=== PATIENT | male | born 1980 | race Caucasian/White ===

== ENCOUNTER 2021-05-23 12:46 | Emergency (ER) | payer BC, SELFPAY ==
[2021-05-23 13:01] VITALS: BP 117/98; PULSE 96; RESP 20; TEMP 36.6; O2SAT 98
--- NOTE | 2021-05-23 13:04 | ED.BACK ---
HPI - Back Pain/Injury General Chief Complaint: Back Pain/Injury Stated Complaint: Back and Chest Pain,Dizzy Time Seen by Provider: 05/23/21 13:04 Source: patient and RN notes reviewed Mode of arrival: ambulatory Limitations: no limitations History of Present Illness HPI Narrative: 41-year-old male presents to the [facility] with complaints of chest pain and back pain after falling off a ladder 9 feet up. States he did fall into a grassy area. No neuro deficits. Patient states that he does feel dizzy. Denies hitting his head. Denies loss of consciousness. Drove himself. MD elicited complaint: back pain Related Data Allergies Allergy/AdvReac Type Severity Reaction Status Date / Time Penicillins Allergy Severe RASH Verified 05/23/21 18:46 morphine AdvReac Severe CONSTIPATION, Verified 05/23/21 18:46 ANGER codeine AdvReac Mild CONSTIPATION, Verified 05/23/21 18:46 ANGER Review of Systems Review of Systems: All systems reviewed & are unremarkable except as noted in HPI and below Constitutional: Constitutional: Reports no additional constitutional complaints, Denies chills and Denies fever(s) Eyes: Eyes: Reports no additional eye complaints, Denies change in vision and Denies photophobia ENT: Reports system reviewed and no additional complaints, except as documented and Denies sore throat Cardiovascular: Cardiovascular: Reports as per HPI, Reports chest pain (Sternal), Denies rapid heart rate, Denies radiating jaw, neck or arm pain and Denies slow heart rate Respiratory: Respiratory: Reports no additional respiratory complaints, Denies chest congestion, Denies cough, Denies dyspnea and Denies wheezing Gastrointestinal: Gastrointestinal: Reports no additional gastrointestinal complaints Genitourinary: Genitourinary: Reports no additional male genitourinary complaints, Denies urinary frequency and Denies urinary incontinence Musculoskeletal: Musculoskeletal: Reports as per HPI and Reports back pain Integumentary/Breasts: Skin/Breast: Reports system reviewed and no additional complaints, except as docu, Denies erythema and Denies rash Neurologic: Reports as per HPI, Denies confusion, Denies vertigo, Reports dizziness (Intermittent), Denies syncope, Reports headache(s), Denies focal weakness, Denies numbness and Denies weakness Psychiatric: Psychiatric: Reports no additional psychiatric complaints Allergic/Immunologic: Allergic/Immunologic: Reports no additional allergic/immunologic complaints PMFSH Past Medical History Medical History (Updated 05/24/21 @ 00:00 by Frank Colmenares) Seizure Family History Family History Mother Patient's mother is in good health Father Patient's father is in good health Social History Social History Smoking status: Former smoker Smoking end date: 10/29/17 Alcohol intake: current Comments At the time of my signature, I reviewed and agree with the nursing past medical, surgical, social, and family history. There is no relevant family history pertinent to the patient complaint. Exam Const: General: healthy appearing, no acute distress and alert Nutritional Appearance: well nourished Orientation/consciousness: patient oriented x3 Limitations: no limitations HENMT: Head: normal to inspection Ears: external ears normal, TM's normal bilaterally and EAC's normal Eyes: Conjunctivae: conjunctivae normal Pupils: Equal, round and reactive pupils present EOM: EOMs intact bilaterally Direct Ophthalmoscopy: no photophobia Neck: Neck: normal visual inspection, no lymphadenopathy and no meningeal signs Chest: Chest palpation & inspection: no crepitus, tenderness sternum and No rash Resp: Effort & Inspection: normal respiratory effort and no use of accessory muscles Auscultation: clear to auscultation bilaterally, no rales, no rhonchi and no wheezes Cardio: Rate:
--- NOTE | 2021-05-23 13:36 | PC.NURSE ---
1309-Pt refused EMS transfer. Provider instructed pt on risks and benefits but pt continue to decline transfer via EMS. Pt to drive self to [facility] for further evaluation and treatment. No c collar placed on pt due to him driving self per provider.
== END 2021-05-23 13:18 | disposition short-term general hospital (02) ==
LOC: EXPCOLL 12:53
PROVIDERS: Emergency Provider Nurse Practitioner
DX: M54.6 Pain in thoracic spine (principal); R51.9 Headache, unspecified; R42 Dizziness and giddiness; W11.XXXA Fall on and from ladder, initial encounter; Z87.891 Personal history of nicotine dependence
CPT/HCPCS: 99213; G0463

== ENCOUNTER 2021-05-23 17:52 | Emergency (ER) | payer BC, SELFPAY ==
--- NOTE | ~2021-05-23 | XR_ITS ---
EXAMINATION: XR shoulder LT min 2V INDICATION: Left shoulder pain TECHNIQUE: Four views of the left shoulder are submitted. COMPARISON: None FINDINGS: Normal alignment. No fracture. Glenohumeral and acromioclavicular joint spaces are normal. Soft tissues are unremarkable. IMPRESSION: 1. No acute osseous abnormality. Reviewed, dictated and finalized at location A.
--- NOTE | ~2021-05-23 | XR_ITS ---
EXAMINATION: XR chest 2V DATE: 05/23/2021 19:12 INDICATION: Tobacco use, fall TECHNIQUE: PA and lateral views of the chest are obtained. COMPARISON: 02/06/2019 FINDINGS: The lungs are free of acute opacities. There is no pleural effusion or pneumothorax. The ca rdiomediastinal silhouette is normal. The visualized bones and soft tissues are unremarkable. IMPRESSION: 1. No acute cardiopulmonary abnormality. Reviewed, dictated and finalized at location A.
--- NOTE | ~2021-05-23 | CT_ITS ---
EXAMINATION: CT cervical spine wo con DATE: 05/23/2021 19:10 INDICATION: Head injury, neck pain TECHNIQUE: Computed tomography (CT) of the cervical spine was performed without intravenous contrast. The dose-length product (DLP) was 374.04 mGy-cm. Automated exposure control and iterative reconstruc tion technique were employed. COMPARISON: 01/22/2019 FINDINGS: There is depression of the superior endplate of the C7 vertebral body which is new since th e comparison examination. Bone alignment is normal. The intervertebral disc spaces are maintained. Th e odontoid is intact. IMPRESSION: 1. Age-indeterminate superior endplate fracture of C7, possibly acute. Reviewed, dictated and finalized at location A.
--- NOTE | ~2021-05-23 | CT_ITS ---
EXAMINATION: CT brain wo con INDICATION: Head injury COMPARISON: None TECHNIQUE: Standard unenhanced head CT. The dose-length product (DLP) was 374.04 mGy-cm. The mA was a djusted according to patient size. Iterative reconstruction technique was employed. FINDINGS: There is no intracranial hemorrhage, acute infarction, or abnormal mass lesion. The ventric les are normal. There is no abnormal mass effect or midline shift. The ortiz-white matter differentiat ion is normal. The basal cisterns are patent. The orbits are normal. There is mild mucosal thickening of the paranasal sinuses. IMPRESSION: 1. No acute intracranial abnormality. Reviewed, dictated and finalized at location A.
[2021-05-23 18:43] VITALS: BP 140/90; PULSE 93; RESP 18; TEMP 36.6; O2SAT 99
--- NOTE | 2021-05-23 20:03 | ED.FALL ---
HPI - Fall General Chief Complaint: Fall Stated Complaint: fell off 10 ft ladder Time Seen by Provider: 05/23/21 20:03 Source: patient Mode of arrival: ambulatory Limitations: no limitations History of Present Illness HPI Narrative: Patient is a 41-year-old male who presents for evaluation of a fall from a ladder. Patient reportedly was sent from an urgent care where he had a fall approximately 10 feet with head trauma, denies loss of consciousness. Patient has been ambulatory. He reports mild neck pain. He denies headache pain, vision changes, nausea or vomiting. No chest pain or shortness of breath. No pelvic pain or extremity pain. Patient denies any numbness or weakness. Patient denies any prodromal symptoms prior to the fall. States that he tripped off the ladder. Related Data Allergies Allergy/AdvReac Type Severity Reaction Status Date / Time Penicillins Allergy Severe RASH Verified 05/23/21 18:46 morphine AdvReac Severe CONSTIPATION, Verified 05/23/21 18:46 ANGER codeine AdvReac Mild CONSTIPATION, Verified 05/23/21 18:46 ANGER Review of Systems Review of Systems: Narrative: CONSTITUTIONAL: Denies fever, chills. EYES: Denies visual changes, redness, or discharge. CARDIOVASCULAR: Denies chest pain, palpitations, or edema. RESPIRATORY: Denies cough or dyspnea. GASTROINTESTINAL: Denies abdominal pain, nausea, vomiting, or diarrhea. GENITOURINARY: Denies dysuria or hematuria. SKIN: Denies rash or itching. MUSCULOSKELETAL: Denies back pain, joint pain, or myalgia. Reports neck pain. NEUROLOGIC: Denies headache, numbness, or weakness. [facility] Past Medical History Medical History (Updated 05/24/21 @ 00:00 by [facility]) Seizure Family History Family History Mother Patient's mother is in good health Father Patient's father is in good health Social History Social History Smoking status: Former smoker Smoking end date: 10/29/17 Alcohol intake: current Exam Narrative: Exam Narrative: Nursing note and vitals reviewed. CONSTITUTIONAL: The patient appears well-developed and well-nourished. No distress. HEAD: Normocephalic and atraumatic. EYES: PERRL, EOMI, normal conjunctiva, anicteric EARS: External ears clear bilaterally, no hemotympanum MOUTH: OP clear, no erythema, exudates NECK: midline trachea, supple, FROM. Cervical collar in place. Positive midline cervical spinal tenderness, no step-offs or deformities. CARDIOVASCULAR: Normal rate, regular rhythm, normal heart sounds and intact distal pulses. No murmurs, rubs, gallops. PULMONARY: Effort normal and breath sounds normal. No respiratory distress. The patient has no wheezes, rales, ronchi. No chest wall tenderness, crepitus or ecchymoses. ABDOMINAL: Soft. Nontender, nondistended. No palpable masses EXTREMITIES:: moving all extremities symmetrically. -RUE: No deformity. Normal ROM at shoulder, elbow, wrist, and hand. Sensation intact M/U/R. Pulse 2+. -LUE: No deformity. Normal ROM at shoulder, elbow, wrist, and hand., Sensation intact M/U/R. Pulse 2+ -RLE: No deformity. Normal ROM at hip, knee, ankle. Sensation intact distally. -LLE: No deformity. Normal ROM at hip, knee, ankle. Sensation intact distally. NEUROLOGY: The patient is alert and oriented to person, place, and time. CN II-XII Course Vital Signs Vital signs: Vital Signs Temperature 36.6 C 05/23/21 18:43 Pulse Rate 93 05/23/21 18:43 Respiratory Rate 18 05/23/21 18:43 Blood Pressure 140/90 05/23/21 18:43 Pulse Oximetry 99 05/23/21 18:43 Temperature 36.6 C 05/23/21 18:43 Pulse Rate 82 05/23/21 21:23 Respiratory Rate 14 05/23/21 21:23 Blood Pressure 135/89 05/23/21 21:23 Pulse Oximetry 98 05/23/21 21:23 MDM - Fall MDM Narrative Medical decision making narrative: Patient presenting to the emergency department after initially
[2021-05-23] MEDS: ACETAMINOPHEN 500 MG TABLET 1000 MG PO (20:24)
[2021-05-23 21:23] VITALS: BP 135/89; PULSE 82; RESP 14; O2SAT 98
== END 2021-05-23 21:22 | disposition home or self-care (01) ==
PROVIDERS: Emergency Provider Emergency Medicine
DX: S12.690A Other displaced fracture of seventh cervical vertebra, initial encounter for closed fracture (principal); Z87.891 Personal history of nicotine dependence; W11.XXXA Fall on and from ladder, initial encounter
CPT/HCPCS: 70450; 71046; 72125; 73030; 99284; A9270; L0140

== ENCOUNTER 2022-01-26 16:11 | Emergency (ER) | payer BC, SELFPAY ==
[2022-01-26 16:22] VITALS: BP 145/105; PULSE 81; RESP 16; TEMP 36.7; O2SAT 99
--- NOTE | 2022-01-26 16:30 | ED.WOUNDLAC ---
HPI - Wound/Laceration General Chief Complaint: Wound/Laceration Stated Complaint: CUT RIGHT 2ND FINGER Time Seen by Provider: 01/26/22 16:30 Source: patient Mode of arrival: ambulatory Limitations: no limitations History of Present Illness HPI narrative: 41-year-old male presents with laceration to right second digit. 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 Bleeding controlled, range of motion and distal neurovascularly intact. Tetanus was within the last 5 years. All systems reviewed and negative except as noted above. Related Data Home Medications Medication Instructions Recorded Confirmed famotidine 40 mg PO DAILY 01/26/22 01/26/22 lisinopril 5 mg PO DAILY 01/26/22 01/26/22 loratadine [Claritin] 10 mg PO DAILY 01/26/22 01/26/22 Allergies Allergy/AdvReac Type Severity Reaction Status Date / Time morphine AdvReac Severe CONSTIPATION, Verified 01/26/22 16:36 ANGER codeine AdvReac Mild CONSTIPATION, Verified 01/26/22 16:36 ANGER Review of Systems Review of Systems: CONSTITUTIONAL: Denies fever, chills, or sweats. EYES: Denies visual changes, redness, or discharge. ENT: Denies rhinorrhea, congestion, sore throat, or otalgia. CARDIOVASCULAR: Denies chest pain, palpitations, or edema. RESPIRATORY: Denies cough or dyspnea. GASTROINTESTINAL: Denies abdominal pain, nausea, vomiting, or diarrhea. GENITOURINARY: Denies dysuria or hematuria. SKIN: Denies rash or itching. Laceration to right second digit. MUSCULOSKELETAL: Denies back pain, joint pain, or myalgia. NEUROLOGIC: Denies headache, numbness, or weakness. PSYCHIATRIC: Denies anxiety or depression. All other systems reviewed are negative, except as documented in HPI. [facility] Past Medical History Medical History (Updated 01/26/22 @ 17:06 by Daria Werner NP) Seizure Family History Family History Mother Patient's mother is in good health Father Patient's father is in good health Social History Social History Smoking status: Former smoker Smoking end date: 10/29/17 Alcohol intake: current Comments At time of signature, agree with nursing past medical, surgical, social and family history. There is no relevant family history pertinent to the presenting complaint. Exam Narrative: GENERAL: This is a well-nourished, well-developed patient, in no apparent distress. HEAD: normocephalic, atraumatic. EYES: PERRL. Sclera clear/white. Vision is grossly intact. EARS: External ears normal NOSE: External nose normal NECK: Neck supple CARDIOVASCULAR: Regular rate and rhythm without murmurs, gallops, or rubs. RESPIRATORY: Clear to auscultation. Breath sounds equal bilaterally. No wheezes, rales, or rhonchi. SKIN: warm, Dry, intact with no suspicious lesions or rash, good texture and turgor. 2 cm laceration to right index finger at the PIP. NEURO: awake, alert, and oriented to person, place and time. There were no obvious focal neurologic abnormalities. EXTREMITIES: Normal range of motion to all extremities Extrem: Hand/finger images: 1. approx. 2 cm laceration Course Course Level of Care: Express Care Visit Vital Signs Vital signs: Vital Signs Temperature 36.7 C 01/26/22 16:22 Pulse Rate 81 01/26/22 16:22 Respiratory Rate 16 01/26/22 16:22 Blood Pressure 145/105 H 01/26/22 16:22 Pulse Oximetry 99 01/26/22 16:22 Temperature 36.7 C 01/26/22 16:22 Pulse Rate 81 01/26/22 16:22 Respiratory Rate 16 01/26/22 16:22 Blood Pressure 145/105 H 01/26/22 16:22 Pulse Oximetry 99 01/26/22 16:22 Reviewed Procedures Laceration Laceration 1: Date: 01/26/22 Time: 17:12 Site: hand Side (If applicable): right (Index finger) Size (cm): 2 Description: linear Depth: simple, single layer Local
== END 2022-01-26 17:20 | disposition home or self-care (01) ==
PROVIDERS: Emergency Provider Nurse Practitioner Family
DX: S61.211A Laceration without foreign body of left index finger without damage to nail, initial encounter (principal); W26.8XXA Contact with other sharp object(s), not elsewhere classified, initial encounter; Y99.0 Civilian activity done for income or pay; Z87.891 Personal history of nicotine dependence
CPT/HCPCS: 12001; 99213; G0463

== ENCOUNTER 2023-04-06 14:15 | Emergency (ER) | payer BC, SELFPAY ==
--- NOTE | ~2023-04-06 | XR_ITS ---
EXAMINATION: XR wrist RT min 3V INDICATION: Right wrist pain, initial encounter TECHNIQUE: Three views of the right wrist are obtained. COMPARISON: None available FINDINGS: There is a nondisplaced linear fracture in the distal aspect of the radius which appears to extend to the distal articular surface. There is mild cortical irregularity in the dorsal aspect of the distal radius on the lateral view. Soft tissue swelling is seen surrounding the fractures. No add itional fracture is identified. IMPRESSION: 1. Nondisplaced linear fracture of the distal radius which appears to extend to the distal articular surface and dorsal cortex of the distal radius. Reviewed, dictated and finalized at location F.
[2023-04-06 14:29] VITALS: BP 133/85; PULSE 85; RESP 18; TEMP 36.3; O2SAT 98
--- NOTE | 2023-04-06 14:54 | ED.UPPEXIN ---
HPI - Extremity Injury (Upper) General Chief Complaint: Extremity Injury, Upper Stated Complaint: rt wrist injury Time Seen by Provider: 04/06/23 14:54 Source: patient Mode of arrival: ambulatory Limitations: no limitations History of Present Illness HPI narrative: 43-year-old male presented for complaint of right wrist pain after falling off a ladder today. He states he fell approximately 8 ft onto the ground, and then fell forward, attempting to catch himself with the right hand. Endorses mild swelling to the wrist with decreased range of motion due to pain. Has not taken anything for pain. Denies deformity, numbness, tingling, or weakness of the extremity. Denies any other injuries, did not hit his head or lose consciousness. Patient is right-hand dominant. Related Data Home Medications Medication Instructions Recorded Confirmed lisinopril 5 mg tablet 5 mg PO DAILY 01/26/22 04/06/23 Allergies Allergy/AdvReac Type Severity Reaction Status Date / Time morphine AdvReac Severe CONSTIPATION, Verified 01/26/22 16:36 ANGER codeine AdvReac Mild CONSTIPATION, Verified 01/26/22 16:36 ANGER Review of Systems Review of Systems: CONSTITUTIONAL: Denies body aches, fever, chills EYES: Denies visual changes ENT: Denies rhinorrhea, congestion CARDIOVASCULAR: Denies chest pain, palpitations, or edema. RESPIRATORY: Denies cough or dyspnea. GASTROINTESTINAL: Denies abdominal pain, nausea, vomiting, or diarrhea. SKIN: Denies rash, itching, or wounds. MUSCULOSKELETAL: Per HPI NEUROLOGIC: Denies headache, numbness, tingling, or weakness. PSYCH: Denies depression or anxiety. All systems reviewed & are unremarkable except as noted in HPI and below PMFSH Past Medical History Medical History Seizure Family History Family History Mother Patient's mother is in good health Father Patient's father is in good health Social History Social History Smoking status: Former smoker Smoking end date: 10/29/17 Alcohol intake: current Comments At time of signature, I have reviewed and agree with nursing past medical, surgical, social and family history unless otherwise noted. Please see nursing chart for further information. There is no relevant family history pertinent to the presenting complaint Exam Narrative: GENERAL: Well-appearing CHEST: Speaks in full sentences. No respiratory distress. HEART: Regular rate and rhythm. Normal and equal peripheral pulses. EXTREMITIES: Right hand has normal strength and sensation. Limited range of motion with flexion/extension/rotation of wrist, endorses pain with movement. Mild swelling and tenderness over the distal radius into the scaphoid area. Pain with movement of 1st digit. No open wounds, bruising, or obvious deformity; pulse palpable and equal bilaterally, skin warm, dry, pink. Capillary refill less than 3 seconds. SKIN: Warm, dry, no rash. NEURO: Alert and oriented x3. PSYCH: Normal mood and affect Course Course Emergency Course: Patient is aware of diagnosis, understands and agrees to treatment plan. Anticipatory guidance given. Patient agrees to follow-up as directed and is aware of reasons to seek care at the emergency department. Portions of this record may have been created with voice recognition software Level of Care: Express Care Visit Vital Signs Vital signs: Vital Signs Temperature 97.4 F L 04/06/23 14:29 Pulse Rate 85 04/06/23 14:29 Respiratory Rate 18 04/06/23 14:29 Blood Pressure 133/85 04/06/23 14:29 Pulse Oximetry 98 04/06/23 14:29 Oxygen Delivery Room Air 04/06/23 14:29 Temperature 97.4 F L 04/06/23 14:29 Pulse Rate 85 04/06/23 14:29 Respiratory Rate 18 04/06/23 14:29 Blood Pressure 133/85 04/06/23 14:29 Pulse Oximetry 9
== END 2023-04-06 15:21 | disposition home or self-care (01) ==
PROVIDERS: Emergency Provider Nurse Practitioner Family; PCP Family Medicine
DX: S52.501A Unspecified fracture of the lower end of right radius, initial encounter for closed fracture (principal); W11.XXXA Fall on and from ladder, initial encounter
CPT/HCPCS: 29125; 73110; 99214; A4565; G0463

== ENCOUNTER 2024-10-03 14:28 | Emergency (ER) | payer BC, SELFPAY ==
[2024-10-03 14:37] VITALS: BP 122/89; PULSE 69; RESP 16; TEMP 36.4; O2SAT 98
--- NOTE | 2024-10-03 14:44 | ED.DENTAL ---
HPI - Dental/Oral General Chief complaint: Dental/Oral Stated complaint: Toothache Time Seen by Provider: 10/03/24 14:32 Source: patient Mode of arrival: ambulatory Limitations: no limitations History of Present Illness HPI Narrative: Judah is a 44-year-old male patient presenting to the clinic today with complaints of right upper dental pain. He reports his tooth is cracked and he has got a cavity. The tooth is been bothering for 2 weeks. States it is very sensitive to hot and cold. He denies any fevers, chills, body aches, or swelling. Related Data Home Medications Medication Instructions Recorded Confirmed metoprolol tartrate 50 mg tablet 25 mg PO DAILY 10/03/24 10/03/24 Allergies Allergy/AdvReac Type Severity Reaction Status Date / Time morphine AdvReac Severe CONSTIPATION, Verified 10/03/24 14:37 ANGER codeine AdvReac Mild CONSTIPATION, Verified 10/03/24 14:37 ANGER Review of Systems Review of Systems: Pertinent positives per HPI. Patient denies any fever, chills, rash, headache, visual changes, dizziness, cough, runny nose, sore throat, shortness of breath, chest pain, palpitations, nausea, vomiting, diarrhea, constipation, abdominal pain, or any urinary issues. PMFSH Past Medical History Medical History Seizure Family History Family History Mother Patient's mother is in good health Father Patient's father is in good health Social History Social History Smoking status: Former smoker Smoking end date: 10/29/17 Alcohol intake: current Comments At the time of my signature, I reviewed and agree with the nursing past medical, surgical, social, and family history. There is no relevant family history pertinent to the patient complaint. Exam Narrative: General: Well-developed, well nourished, in no apparent distress Head: Normocephalic, atraumatic Eyes: Pupils equally round and reactive to light bilaterally, EOM intact, sclera and conjunctive clear, no discharge, lids normal Ears: TMs intact and clear, ear canals clear, no drainage, grossly hearing normal. Nose: Nares patent, no discharge, no inflammation, no sinus tenderness. Mouth: Oropharynx without lesions or masses, poor dentition, pain to palpation over tooth number 16 with mild gingival swelling, MMM. Neck: Supple, trachea midline, no enlargement of anterior or posterior cervical nodes, no thyroid masses or goiter palpable. Cardio: Regular rate and rhythm, s1 and s2 normal, no murmur appreciated. Resp: Clear to auscultation bilaterally anteriorly and posteriorly, no rhonchi, rales, wheezing or rubs Course Course Emergency Course: Portions of this record may have been created with voice recognition software. Level of Care: Express Care Visit Vital Signs Vital signs: Vital Signs Temperature 36.4 C 10/03/24 14:37 Pulse Rate 69 10/03/24 14:37 Respiratory Rate 16 10/03/24 14:37 Blood Pressure 122/89 10/03/24 14:37 Pulse Oximetry 98 10/03/24 14:37 Temperature 36.4 C 10/03/24 14:37 Pulse Rate 69 10/03/24 14:37 Respiratory Rate 16 10/03/24 14:37 Blood Pressure 122/89 10/03/24 14:37 Pulse Oximetry 98 10/03/24 14:37 Vital signs reviewed MDM - Dental/Oral MDM Narrative Medical decision making narrative: At the time of visit patient is resting comfortably on the exam table. Patient appears to be nontoxic. Plan: I suspect patient has toothache. Prescription for amoxicillin was sent to the pharmacy and recommend follow-up with his dentist as soon as possible. Supportive measures were discussed with the patient and they voiced understanding discharge instructions and agrees to treatment plan. Return precautions reviewed Differential Diagnosis Differential diagnosis: Likely gingival abscess, dental caries, toothache, dental abscess, fracture of tooth and aphthous ulcer Discharge Plan Discharge Clinical Impression: Tooth ache Patient Disposition: Home, Self-Care Condition: Stable Instructions: Antibiotic Form, Toothache (ED) Additional Instructions: Increase fluids and stay well hydrated Take Tylenol/Motrin as needed for pain May apply Orajel to the affected area to help alleviate pain May use cool or warm compresses to help alleviate pain Take amoxicillin as prescribed Follow-up with your dentist as soon as possible Prescriptions: New amoxicillin 875 mg tablet 875 mg PO Q12H 10 Days Qty: 20 0RF No Action metoprolol tartrate 50 mg tablet 25 mg PO DAILY Follow-up/Referrals: Atul,MD Ayush [Primary Care Provider] - Stand Alone Forms: Work/School Release IP Time of Disposition: 14:42 Quality NIHSS Nursing Documentation ED NIHSS nursing documentation: reviewed/agree
== END 2024-10-03 14:46 | disposition home or self-care (01) ==
PROVIDERS: Emergency Provider Nurse Practitioner Family; PCP Family Medicine
DX: K08.89 Other specified disorders of teeth and supporting structures (principal); Z87.891 Personal history of nicotine dependence
CPT/HCPCS: 99213; G0463

== ENCOUNTER 2025-07-24 09:38 | Emergency (ER) | payer MEDICAID, SELFPAY ==
[2025-07-24 09:48] VITALS: BP 123/88; PULSE 101; RESP 18; TEMP 36.8; O2SAT 98
--- NOTE | 2025-07-24 10:02 | ED_ITS ---
HPI - Extremity Injury (Upper) General Chief Complaint: Extremity Injury, Upper Stated Complaint: Right Shoulder Pain Time Seen by Provider: 07/24/25 10:02 Source: patient Mode of arrival: ambulatory Limitations: no limitations History of Present Illness HPI narrative: 45 yo M presents with pain and inflammation to R shoulder. Requesting to prednisone to help relieve the inflammation. Pt reports old shoulder injury 10 years ago that intermittently causes pain. States he did see orthopedics initially after injury, never required surgical repair. don't remember exact injury. normal ROM and distal NV intact. all systems reviewed and negative except as noted above. Related Data Allergies Allergy/AdvReac Type Severity Reaction Status Date / Time morphine AdvReac Severe CONSTIPATION, Verified 07/24/25 09:57 ANGER codeine AdvReac Mild CONSTIPATION, Verified 07/24/25 09:57 ANGER PMFSH Past Medical History Medical History Seizure Family History Family History Mother Patient's mother is in good health Father Patient's father is in good health Social History Social History Smoking status: Former smoker Smoking end date: 10/29/17 Alcohol intake: current Comments At time of signature, agree with nursing past medical, surgical, social and family history. There is no relevant family history pertinent to the presenting complaint. Exam Narrative: GENERAL: This is a well-nourished, well-developed patient, in no apparent distress. HEAD: normocephalic, atraumatic. EYES: PERRL. Sclera clear/white. Vision is grossly intact. EARS: External ears normal NOSE: External nose normal NECK: Neck supple, non-tender without lymphadenopathy, masses or thyromegaly. CARDIOVASCULAR: Regular rate and rhythm without murmurs, gallops, or rubs. RESPIRATORY: Clear to auscultation. Breath sounds equal bilaterally. No wheezes, rales, or rhonchi. SKIN: warm, Dry, intact with no suspicious lesions or rash, good texture and turgor. NEURO: awake, alert, and oriented to person, place and time. There were no obvious focal neurologic abnormalities. EXTREMITIES: Generalized tenderness to right shoulder joint. Normal range of motion. No edema or effusion noted. Distal neurovascularly intact. Course Course Level of Care: Express Care Visit Vital Signs Vital signs: Vital Signs Temperature 36.8 C 07/24/25 09:48 Pulse Rate 101 H 07/24/25 09:48 Respiratory Rate 18 07/24/25 09:48 Blood Pressure 123/88 07/24/25 09:48 Pulse Oximetry 98 07/24/25 09:48 Oxygen Delivery Room Air 07/24/25 09:48 Temperature 36.8 C 07/24/25 09:48 Pulse Rate 101 H 07/24/25 09:48 Respiratory Rate 18 07/24/25 09:48 Blood Pressure 123/88 07/24/25 09:48 Pulse Oximetry 98 07/24/25 09:48 Oxygen Delivery Room Air 07/24/25 09:48 Reviewed MDM - Extremity Injury (Upper) MDM Narrative Medical decision making narrative: patient requesting prednisone for shoulder inflammation . Has been taking ibuprofen without relief pain. Patient is well-appearing, nontoxic. No pain distress noted. Discharge Plan Discharge Clinical Impression: Chronic pain in right shoulder Patient Disposition: Home Condition: Stable Instructions: Shoulder Pain (ED) Additional Instructions: Take medication as prescribed. Take Tylenol or ibuprofen every 6-8 hours as needed for pain. Apply ice as needed for pain. Follow-up with personnel placement specialist for further evaluation of your pain. Patient Language: Qatari Prescriptions: New prednisone 20 mg tablet See Rx Instructions .ROUTE .COMPLEX Qty: 12 0RF Rx Instructions: Take 3 tablets today, then 2 tablets daily for 3 days then 1 tablet daily for 3 days. Follow-up/Referrals: Atul,MD Ayush [Primary Care Provider, Unknown] Akash Lazaro MD [Physician, Orthopedics] Referral Note: follow up with personnel placement specialist Time of Disposition: 10:11
== END 2025-07-24 10:20 | disposition home or self-care (01) ==
PROVIDERS: Emergency Provider Nurse Practitioner Family; PCP Family Medicine
DX: M25.511 Pain in right shoulder (principal); G89.29 Other chronic pain; Z87.891 Personal history of nicotine dependence
CPT/HCPCS: 99213; G0463

== ENCOUNTER 2025-08-01 13:40 | Emergency (ER) | payer MEDICAID, SELFPAY ==
[2025-08-01 13:47] VITALS: BP 116/84; PULSE 82; RESP 20; TEMP 36.2; O2SAT 99
--- NOTE | 2025-08-01 14:04 | ED.EXTPRO ---
HPI - Extremity Problem General Chief complaint: Extremity Problem,Nontraumatic Stated complaint: Left Shoulder Pain patient presents to the [facility] with complaints left-sided shoulder pain and limited range of motion that began last night. Patient denies any trauma or injury to the area. Patient does report he was evaluated 6 days ago for right shoulder pain this has been ongoing in the right shoulder and patient was given steroids and symptoms are significantly improved in the right shoulder. Patient also does report a scheduled appointment with orthopedic physician this week for evaluation of the right shoulder. patient recently finished a round of steroids for the right shoulder. Also has been taking Tylenol and Advil or naproxen for the shoulder pain. Denies numbness, tingling, or swelling to left shoulder. Related Data Allergies Allergy/AdvReac Type Severity Reaction Status Date / Time morphine AdvReac Severe CONSTIPATION, Verified 08/01/25 13:42 ANGER codeine AdvReac Mild CONSTIPATION, Verified 08/01/25 13:42 ANGER Review of Systems Constitutional: Constitutional: Reports as per HPI, Denies chills, Denies fatigue, Denies fever(s) and Denies weakness Eyes: Eyes: Reports no additional eye complaints ENT: Reports system reviewed and no additional complaints, except as documented Cardiovascular: Cardiovascular: Reports no additional cardiovascular complaints Respiratory: Respiratory: Reports no additional respiratory complaints Gastrointestinal: Gastrointestinal: Reports no additional gastrointestinal complaints Genitourinary: Genitourinary: Reports no additional male genitourinary complaints Musculoskeletal: Musculoskeletal: Reports as per HPI, Reports arthralgias, Denies joint swelling and Denies muscle cramps Integumentary/Breasts: Skin/Breast: Reports as per HPI, Denies erythema, Denies rash and Denies skin ulcer Neurologic: Reports as per HPI, Denies headache(s), Denies numbness and Denies weakness Psychiatric: Psychiatric: Reports no additional psychiatric complaints Endocrine: Endocrine: Reports no additional endocrine complaints Hematologic/Lymphatic: Hematologic/Lymphatic: Reports no additional hematologic/lymphatic complaints Allergic/Immunologic: Allergic/Immunologic: Reports no additional allergic/immunologic complaints [facility] Past Medical History Medical History Seizure Family History Family History Mother Patient's mother is in good health Father Patient's father is in good health Social History Social History Smoking status: Former smoker Smoking end date: 10/29/17 Alcohol intake: current Exam Const: General: healthy appearing and no acute distress Nutritional Appearance: well nourished Orientation/consciousness: patient oriented x3 Limitations: no limitations Neck: Neck: normal visual inspection and no lymphadenopathy Other: no cervical spine tenderness. no cervical paraspinal tenderness Chest: Chest palpation & inspection: normal inspection of the chest, no tenderness and No Pacemaker present Resp: Effort & Inspection: normal respiratory effort Auscultation: clear to auscultation bilaterally Cardio: Rate: regular rate Rhythm: regular rhythm Skin: General skin exam: normal color Rashes: no rashes Wounds: no wounds Neuro: General: patient oriented x3 and moves all extremities Speech: normal speech Gait exam (Neuro): Normal gait present Extrem: Left upper extremity: shoulder/upper arm inspection abnormal, axillary nerve sensory function normal and abnormal ROM; inspection normal, no tenderness, no swelling, ROM limited, no abrasions, no lacerations, no ecchymosis, no crepitus, no foreign bodies, no penetrating wound, no deformity and no unsual warmth Psych: Mental Status: mental status grossly normal Affect: normal affect Attitude: cooperative Course Course Level of Care: Express Care Visit Vital Signs Vital signs: Vital Signs Temperature 97.1 F L 08/01/25 13:47 Pulse Rate 82 08/01/25 13:47 Respiratory Rate 20 08/01/25 13:47 Blood Pressure 116/84 08/01/25 13:47 Pulse Oximetry 99 08/01/25 13:47 Oxygen Delivery Room Air 08/01/25 13:47 Temperature 97.1 F L 08/01/25 13:47 Pulse Rate 82 08/01/25 13:47 Respiratory Rate 20 08/01/25 13:47 Blood Pressure 116/84 08/01/25 13:47 Pulse Oximetry 99 08/01/25 13:47 Oxygen Delivery Room Air 08/01/25 13:47 MDM - Extremity (Nontraumatic) MDM Narrative Medical decision making narrative: Spoke with patient about the need for follow-up with primary care physician and to keep appointment with orthopedics office on Sunday. educated patient that given the symptoms and chronic nature of his pain we can attempt to use continued anti-inflammatories with muscle relaxers to help with comfort. Educated patient if pain becomes unbearable he should be evaluated in the emergency room for other options The patient was evaluated by myself in the express care. History is obtained from patient who is an independent historian and physical exam was performed. Available medical records were reviewed at this time. Exam findings show no acute concerns or changes; patient is non-toxic appearing and is in no distress. Patient is appropriate for outpatient treatment and follow-up. I have evaluated and discussed social determinants of health with the patient that could potentially impact subsequent diagnosis and treatment plans. Differential diagnosis and treatment plan were discussed with the patient. Patient agrees with discussion and after shared medical decision making agrees with plan of care. All questions were answered to the patient's satisfaction. Differential Diagnosis Differential diagnosis: Likely other ( shoulder pain, shoulder fracture frozen shoulder, cervical pain) Medical Records Attestation: I reviewed the patient's medical records. Medical records narrative: reviewed previous Express Care notes Discharge Plan Discharge Clinical Impression: Acute pain of left shoulder Patient Disposition: Home Condition: Stable Instructions: Antibiotic Form, Shoulder Pain (ED), Exercises for Internal and External Shoulder Rotation (ED), Exercises for Shoulder Abduction and Adduction (ED) Additional Instructions: Minimize activities that aggravate the condition The RICE protocol. Follow the RICE protocol as soon as possible after your injury: Rest your affected limb by not walking on it/not using this. Ice should be immediately applied to keep the swelling down. It can be used for 20 to 30 minutes, three or four times daily. Do not apply ice directly to your skin. Gentle range of motion exercises as tolerated. Elevate affected area above the level of your heart if possible as often as possible during the first 48 hours then as needed for increased swelling. Medication: Nonsteroidal anti-inflammatory drugs (NSAIDs) such as ibuprofen and naproxen can help control pain and swelling. Because they improve function by both reducing swelling and controlling pain, they are a better option for mild sprains than narcotic pain medicines. Please schedule a follow-up visit with your personal physician for further evaluation and treatment within 1week OR If your symptoms persist, change or worsen significantly before you can contact your personal physician then please, without delay, go to the emergency department for further evaluation. Patient Language: Ecuadorean Prescriptions: New tizanidine 4 mg tablet 4 mg PO Q8H PRN (Reason: muscle spasticity) Qty: 30 0RF naproxen 500 mg tablet 500 mg PO BID PRN (Reason: pain) Qty: 20 0RF No Action prednisone 20 mg tablet See Rx Instructions .ROUTE .COMPLEX Qty: 12 0RF Rx Instructions: Take 3 tablets today, then 2 tablets daily for 3 days then 1 tablet daily for 3 days. Follow-up/Referrals: Atul,MD Ayush [Primary Care Provider, Unknown] Time of Disposition: 14:14
== END 2025-08-01 14:25 | disposition home or self-care (01) ==
PROVIDERS: Emergency Provider Nurse Practitioner Family; PCP Family Medicine
DX: M25.512 Pain in left shoulder (principal); Z87.891 Personal history of nicotine dependence
CPT/HCPCS: 99213; G0463